=== PATIENT | male | born 2000 | race Caucasian/White ===

== ENCOUNTER 2023-10-05 16:30 | Emergency (ER) | payer SELFPAY ==
[2023-10-05] MEDS ORDERED: Triple Antibiotic Oint 1 GM Packet ONE (17:10)
== END 2023-10-05 17:32 | disposition home or self-care (01) ==
LOC: MADERS 16:30
DX: T22.111A Burn of first degree of right forearm, initial encounter (principal); X58.XXXA Exposure to other specified factors, initial encounter
CPT/HCPCS: 16000; 99283